=== PATIENT | female | born 1945 | race Caucasian/White ===

== ENCOUNTER → 2017-05-27 | Outpatient (CLI) | payer MEDICARE, OTHER ==
[~2017-05-27] MED LIST: ALPR0.5T7 PO; ESOM40CA39 PO; FAMO10TA66 PO; FUR40T PO; HYDR-2601 PO; LEVO25TA6 PO; LOPE2CAP PO; LOS50T PO; LOSA50TA6 PO; ONDA4TAB5 PO; POTA10SO11 PO; SERT-160 PO
[2017-05-27 17:08] LABS: Basophils # (auto) 0 uL; Basophils % (auto) 0.6 % (0.0-2.0); Eosinophils # (auto) 0.4 uL; Eosinophils % (auto) 7.1 % (0.0-7.0); Hematocrit 32.7 % (36.0-46.0); Hemoglobin 10.6 g/dL (12.2-16.2); Lymphocytes # (auto) 1.8 uL; Mean Corpuscular Hemoglobin 30.6 pg (28.0-32.0); Mean Corpuscular Hgb Conc. 32.5 g/dL (32.0-36.0); Mean Corpuscular Volume 94.1 fL (80.0-100.0); Mean Platelet Volume 7.6 fL (6.9-10.8); Monocytes # (auto) 0.4 uL; Monocytes % (auto) 6.2 % (0.0-12.0); Neutrophils # (auto) 3.2 uL; Neutrophils % (auto) 55.1 % (37.0-80.0); Nucleated Red Blood Cells % 0.1 %; Platelet Count (auto) 189 10^3/uL (140-450); Red Cell Distribution Width 17.5 % (11.8-14.3); White Blood Cell 5.7 10^3/uL (4.4-10.8)
[2017-05-27 17:24] LABS: Albumin 3.6 g/dL (3.4-5.0); BUN/Creatinine Ratio 19.2; Bilirubin, Total 0.5 mg/dL (0.2-1.0); Calcium 8.7 mg/dL (8.5-10.1); Potassium 4.1 mmol/L (3.5-5.1); Total Protein 6.7 g/dL (6.4-8.2)
[2017-05-27 17:28] LABS: Vitamin B12 539 pg/mL (211-911)
[2017-05-27 17:31] LABS: Temperature: 21.9 C (20.0-25.0)
[2017-05-27 18:00] LABS: Wright Stain Ready for Review
[2017-05-29 05:06] LABS: Haptoglobin 110 mg/dL (34-200)
[2017-05-29 09:08] LABS: Erythropoietin 6.9 mIU/mL (2.6-18.5)
== END | disposition home or self-care (01) ==
LOC: LAB 16:16
PROVIDERS: ATTEND Internal Medicine
DX: D50.9 Iron deficiency anemia, unspecified (principal); J44.9 Chronic obstructive pulmonary disease, unspecified; I50.9 Heart failure, unspecified
CPT/HCPCS: 36415; 80053; 82607; 82668; 82728; 82746; 83010; 83540; 83550; 83615; 84436; 84439; 84443; 85025; 85045; 85652; 86038; 86880; 86885